=== PATIENT | female | born 1940 | race Caucasian/White ===

== ENCOUNTER 2018-03-04 00:59 | Emergency (ER) | payer OTHER ==
[~2018-03-04] VITALS: Ht 165.1 cm; Wt 79.6 kg
[~2018-03-04 00:59] MED LIST: GLIM1TAB PO; LISI-519 PO; LORA-361 PO; METF500T PO; ROSU40 PO
[2018-03-04 01:05] VITALS: BP 154/80; PULSE 61; RESP 20; TEMP 98.1; O2SAT 97
[2018-03-04] MEDS ORDERED: SODIUM CHLOR 0.9% 1000 ML INJ 1,000 ML IV SCH (01:22)
[2018-03-04 01:24] VITALS: BP 144/68; PULSE 62; RESP 20; O2SAT 98
[2018-03-04] MEDS ORDERED: ONDANSETRON HCL 4 MG/2 ML VIAL IVP ONE (01:30)
[2018-03-04] MEDS ORDERED: SODIUM CHLORIDE 0.9% FLUSH 10 ML FLUSH IV FLUSH PRN (01:30)
[2018-03-04 01:35] LABS: AUTOMATED NEUTROPHIL # 8.4 TH/MM3 (1.8-7.7); BASOPHIL # 0.2 TH/MM3 (0-0.2); BASOPHIL % 1.7 % (0.0-2.0); EOSINOPHIL # 0.2 TH/MM3 (0-0.4); EOSINOPHIL % 1.7 % (0.0-4.0); HEMATOCRIT 36.3 % (35.0-46.0); LYMPH % 17.6 % (9.0-44.0); MEAN CELL VOLUME 85.1 FL (80.0-100.0); MEAN CORPUSCULAR HEMOGLOBIN 28.2 PG (27.0-34.0); MEAN CORPUSCULAR HGB CONC 33.2 % (32.0-36.0); MEAN PLATELET VOLUME 8.2 FL (7.0-11.0); MONO % 6.3 % (0.0-8.0); MONOCYTE # 0.7 TH/MM3 (0-0.9); NEUT % 72.7 % (16.0-70.0); PLATELET COUNT 200 TH/MM3 (150-450); RED BLOOD COUNT 4.26 MIL/MM3 (4.00-5.30); RED CELL DISTRIBUTION WIDTH 13.2 % (11.6-17.2); WHITE BLOOD COUNT 11.5 TH/MM3 (4.0-11.0)
[2018-03-04 01:42] LABS: CHLORIDE 103 MEQ/L (98-107); SODIUM (NA) 137 MEQ/L (136-145)
[2018-03-04 01:46] LABS: ALBUMIN 3.5 GM/DL (3.4-5.0); BICARBONATE 26.8 MEQ/L (21.0-32.0); BLOOD UREA NITROGEN 15 MG/DL (7-18); CALCIUM 9.2 MG/DL (8.5-10.1); GLUCOSE,RANDOM 261 MG/DL (74-106)
[2018-03-04 01:49] LABS: ALT (GPT) 23 U/L (10-53); AST (GOT) 17 U/L (15-37); CREATININE 0.96 MG/DL (0.50-1.00); GLOMERULAR FILTRATION RATE 57 ML/MIN (>89)
[2018-03-04 01:51] LABS: TOTAL BILIRUBIN ADULT 0.4 MG/DL (0.2-1.0); TOTAL PROTEIN 7.7 GM/DL (6.4-8.2)
[2018-03-04 01:52] LABS: ALKALINE PHOSPHATASE 72 U/L (45-117)
[2018-03-04] MEDS ORDERED: SODIUM CHLOR 0.9% 1000 ML INJ 1,000 ML IV ONE (01:55)
[2018-03-04] MEDS ORDERED: MORPHINE SULFATE 4 MG/ML INJ IV PUSH ONE (02:00)
[2018-03-04] MEDS ORDERED: SODIUM CHLORIDE 0.9% FLUSH 10 ML FLUSH IVF PRN (02:00)
[2018-03-04] MEDS ORDERED: ONDANSETRON HCL 4 MG/2 ML VIAL IV PUSH ONE (02:00)
[2018-03-04] MEDS ORDERED: KETOROLAC TROMETHAMINE 30 MG/ML (IVP) VIAL IV PUSH ONE (02:00)
--- NOTE | 2018-03-04 02:02 | PD ---
HPI Chief Complaint: GI Complaint Time Seen by Provider: 01:22 Travel History International Travel<30 days: No Contact w/Intl Traveler<30days: No Traveled to known affect area: No History of Present Illness HPI The patient is a 77-year-old female that complains of severe, pressure discomfort on the left flank radiating down to the left lower quadrant since approximately 11 PM yesterday. The patient has a history of diabetes as well as previous kidney stones. She also has a history of cholelithiasis. The pain is a 10/10. She has been vomiting constantly. She denies any fever, dysuria, frequency or urgency. PFSH Past Medical History High Cholesterol: Yes Diabetes: Yes Patient Takes Glucophage: Yes (03/03/18-1800) Hypertension: Yes Influenza Vaccination: No Past Surgical History Surgical History: No Previous Surgery Social History Alcohol Use: No Tobacco Use: No Substance Use: No Allergies-Medications (Allergen,Severity, Reaction): Coded Allergies: cortisone (Unverified Allergy, Mild, 03/04/18) Reported Meds & Prescriptions Reported Meds & Active Scripts Active Flomax (Tamsulosin HCl) 0.4 Mg Cap 0.4 Mg PO HS Zofran (Ondansetron HCl) 4 Mg Tab 4 Mg PO Q6HR PRN Ibuprofen 600 Mg Tab 600 Mg PO TID Reported Glimepiride 1 Mg Tab 1 Mg PO DAILY Take with breakfast or first main meal Crestor (Rosuvastatin Calcium) 40 Mg Tab 20 Mg PO DAILY Metformin (Metformin HCl) 500 Mg Tab 500 Mg PO BIDPC With meals Lisinopril 5 Mg Tab 20 Mg PO DAILY Review of Systems Except as stated in HPI: all other systems reviewed are Neg Physical Exam Narrative GENERAL: The patient is alert, oriented 3 in moderate to severe distress with her left flank/left UVJ discomfort. Her vital signs show blood pressure 134/80 but are otherwise normal. SKIN: Focused skin assessment warm/dry. No skin rash is seen. HEAD: Atraumatic. Normocephalic. EYES: Pupils equal and round. No scleral icterus. No injection or drainage. ENT: No nasal bleeding or discharge. Mucous membranes pink and moist. NECK: Trachea midline. No JVD. CARDIOVASCULAR: Regular rate and rhythm. No murmur appreciated. RESPIRATORY: No accessory muscle use. Clear to auscultation. Breath sounds equal bilaterally. GASTROINTESTINAL: Abdomen soft, with tenderness to direct palpation in the left flank and left UVJ areas, nondistended. Hepatic and splenic margins not palpable. No guarding or rebound is present. MUSCULOSKELETAL: No obvious deformities. No clubbing. No cyanosis. No edema. NEUROLOGICAL: Awake and alert. No obvious cranial nerve deficits. Motor grossly within normal limits. Normal speech. PSYCHIATRIC: Appropriate mood and affect; insight and judgment normal. Data Data Last Documented VS Vital Signs Date Time Temp Pulse Resp B/P (MAP) Pulse Ox O2 Delivery O2 Flow Rate FiO2 03/04/18 02:22 55 20 122/75 (91) 98 03/04/18 01:05 98.1 Orders Orders Complete Blood Count With Diff (03/04/18:22) Comprehensive Metabolic Panel (03/04/18:22) Lipase (03/04/18 01:22) Urinalysis - C+S If Indicated (03/04/18 01:22) Iv Access Insert/Monitor (03/04/18:22) Ecg Monitoring (03/04/18:22) Oximetry (03/04/18 01:22) Ondansetron Inj (Zofran Inj) (03/04/18 01:30) Sodium Chlor 0.9% 1000 Ml Inj (Ns 1000 M (03/04/18 01:22) Sodium Chloride 0.9% Flush (Ns Flush) (03/04/18 01:30) Ketorolac Inj (Toradol Inj) (03/04/18 02:00) Morphine Inj (Morphine Inj) (03/04/18 02:00) Ondansetron Inj (Zofran Inj) (03/04/18 02:00) Sodium Chloride 0.9% Flush (Ns Flush) (03/04/18 02:00) Sodium Chlor 0.9% 1000 Ml Inj (Ns 1000 M (03/04/18 01:55) Ct Abd/Pel W/O Iv Contrast (03/04/18 03:37) Ed Discharge Order (03/04/18 03:56) Urine Culture (03/04/18 03:45) Tamsulosin (Flomax) (03/04/18 04:00) Labs Laboratory Tests Test 03/04/18 01:15 03/04/18 03:45 White Blood Count 11.5 TH/MM3 Red Blood Count 4.26 MIL/MM3 Hemoglobin 12.0 GM/DL Hematocrit 36.3 % Mean Corpuscular Volume 85.1 FL Mean Corpuscular Hemoglobin 28.2 PG Mean Corpuscular Hemoglobin Concent 33.2 % Red Cell Distribution Width 13.2 % Platelet Count 200 TH/MM3 Mean Platelet Volume 8.2 FL Neutrophils (%) (Auto) 72.7 % Lymphocytes (%) (Auto) 17.6 % Monocytes (%) (Auto) 6.3 % Eosinophils (%) (Auto) 1.7 % Basophils (%) (Auto) 1.7 % Neutrophils # (Auto) 8.4 TH/MM3 Lymphocytes # (Auto) 2.0 TH/MM3 Monocytes # (Auto) 0.7 TH/MM3 Eosinophils # (Auto) 0.2 TH/MM3 Basophils # (Auto) 0.2 TH/MM3 CBC Comment DIFF FINAL Differential Comment Blood Urea Nitrogen 15 MG/DL Creatinine 0.96 MG/DL Random Glucose 261 MG/DL Total Protein 7.7 GM/DL Albumin 3.5 GM/DL Calcium Level 9.2 MG/DL Alkaline Phosphatase 72 U/L Aspartate Amino Transf (AST/SGOT) 17 U/L Alanine Aminotransferase (ALT/SGPT) 23 U/L Total Bilirubin 0.4 MG/DL Sodium Level 137 MEQ/L Potassium Level 3.9 MEQ/L Chloride Level 103 MEQ/L Carbon Dioxide Level 26.8 MEQ/L Anion Gap 7 MEQ/L Estimat Glomerular Filtration Rate 57 ML/MIN Lipase 275 U/L Urine Color YELLOW Urine Turbidity CLOUDY Urine pH 7.0 Urine Specific [place] 1.020 Urine Protein 100 mg/dL Urine Glucose (UA) 250 mg/dL Urine Ketones NEG mg/dL Urine Occult Blood LARGE Urine Nitrite NEG Urine Bilirubin NEG Urine Urobilinogen 0.2 MG/DL Urine Leukocyte Esterase SMALL Urine RBC 100-200 /hpf Urine WBC 15-19 /hpf Urine Squamous Epithelial Cells 0-5 /hpf Urine Calcium Oxalate Crystals FEW /hpf Urine Bacteria RARE /hpf Microscopic Urinalysis Comment CULTURE INDICATED MDM Medical Decision Making Medical Screen Exam Complete: Yes Emergency Medical Condition: Yes Medical Record Reviewed: Yes Differential Diagnosis Urinary stone, pancreatitis, cholecystitis, colitis, small bowel obstruction, dehydration, electrolyte disorder, urinary tract infection Narrative Course It is 0350 now and the patient for over an hour has had no pain whatsoever. She has no tenderness on abdominal exam. This was likely a urinary stone that passed. The urine shows a large amount of blood with little evidence of infection. Diagnosis Primary Impression: Ureteral calculus, left Additional Instructions: Follow-up with a urologist if you have recurrent problems. If the pain returns , please return to the emergency department. Med/Other Pt SpecificInfo: Prescription(s) given Scripts Tamsulosin (Flomax) 0.4 Mg Cap 0.4 MG PO HS for Manage Prostate Problems, #12 CAP 0 Refills Prov: Salvador Diaz MD 03/04/18 Ondansetron (Zofran) 4 Mg Tab 4 MG PO Q6HR Y for NAUSEA OR VOMITING, #15 TAB 0 Refills Prov: Salvador Diaz MD 03/04/18 Ibuprofen (Ibuprofen) 600 Mg Tab 600 MG PO TID, #33 TAB 0 Refills Prov: Salvador Diaz MD 03/04/18 Disposition: 01 DISCHARGE HOME Condition: Stable Salvador Diaz MD March 04, 2018 02:02
[2018-03-04 02:22] VITALS: BP 122/75; PULSE 55; RESP 20; O2SAT 98
[2018-03-04 03:30] VITALS: BP 134/76; PULSE 60; RESP 20; O2SAT 98
[2018-03-04 03:52] LABS: BILIRUBIN, URINE NEG (NEG); BLOOD, URINE LARGE (NEG); GLUCOSE,URINE 250 mg/dL (NEG); KETONE, URINE NEG (NEG); NITRITE,URINE NEG (NEG); URINE COLOR YELLOW (YELLW/STRAW); URINE LEUKOCYTE ESTERASE SMALL (NEG)
[2018-03-04 03:57] LABS: BACTERIA, URINE RARE /hpf; CALCIUM OXALATE CRYSTALS,URINE FEW /hpf; RBC, URINE 100-200 /hpf (0-3); SQUAMOUS EPITHELIAL CELL URINE 0-5 /hpf (0-5); WBC, URINE 15-19 /hpf (0-5)
[2018-03-04] MEDS ORDERED: IBUP-232 PO (03:59)
[2018-03-04] MEDS ORDERED: TAMS5CAP PO (03:59)
[2018-03-04] MEDS ORDERED: ZOFR4TAB PO (03:59)
[2018-03-04] MEDS ORDERED: TAMSULOSIN HCL 0.4 MG CAP PO ONE (04:00)
[2018-03-04 04:41] VITALS: BP 134/81
[2018-03-05] MEDS ORDERED: PERC5TAB12 PO (00:42)
== END 2018-03-04 04:50 | disposition home or self-care (01) ==
LOC: PHED 00:59
DX: N13.2 Hydronephrosis with renal and ureteral calculous obstruction (principal); I10 Essential (primary) hypertension; E11.9 Type 2 diabetes mellitus without complications; E78.00 Pure hypercholesterolemia, unspecified; Z87.442 Personal history of urinary calculi; Z88.8 Allergy status to other drugs, medicaments and biological substances; Z79.84 Long term (current) use of oral hypoglycemic drugs; Z79.899 Other long term (current) drug therapy; K76.0 Fatty (change of) liver, not elsewhere classified; E78.5 Hyperlipidemia, unspecified
CPT/HCPCS: 80053; 81001; 83690; 85025; 87086; 96361; 96374; 96375; 96376; 99284; J1885; J2270; J2405; J7030

== ENCOUNTER 2018-03-04 21:11 | Emergency (ER) | payer OTHER ==
[~2018-03-04] VITALS: Ht 165.1 cm; Wt 80.7 kg
[~2018-03-04 21:11] MED LIST changes: +IBUP-232 PO; +TAMS5CAP PO; +ZOFR4TAB PO
[2018-03-04 21:20] VITALS: BP 155/73; PULSE 63; RESP 18; TEMP 98; O2SAT 99
[2018-03-04] MEDS ORDERED: MORPHINE SULFATE 4 MG/ML INJ IV PUSH ONE (23:45)
[2018-03-04] MEDS ORDERED: ONDANSETRON HCL 4 MG/2 ML VIAL IV PUSH ONE (23:45)
[2018-03-04] MEDS ORDERED: SODIUM CHLORID 0.9% 500 ML INJ 500 ML IV ONE (23:45)
--- NOTE | 2018-03-04 23:45 | PD ---
HPI Chief Complaint: Flank/Kidney Pain Time Seen by Provider: 23:39 Travel History International Travel<30 days: No Contact w/Intl Traveler<30days: No Traveled to known affect area: No History of Present Illness HPI 77-year-old female presents to the emergency department by private transportation to care family for evaluation of recurrent left flank pain consistent with renal colic. Patient has prior history of kidney stone. Patient was seen yesterday for same complaint however was noted to become pain- free while visiting in the emergency department and it was determined to not do a CAT scan at that time. Patient since 3 PM is had recurrent 7/10 left flank pain. Patient returns at this time to undergo CT imaging. Patient's had nausea no vomiting today pain was 10/10 intensity yesterday with vomiting today pain is 7/10 intensity no vomiting has had nausea and did take ibuprofen prior to arrival to the emergency department. Patient denies other concerns or complaints. No chest pain no shortness of breath patient does have history of diabetes hypertension and dyslipidemia. Patient is unable to identify exacerbating or alleviating factors. PFSH Past Medical History Narrative Medical Hypertension dyslipidemia diabetes kidney stone no tobacco use nursing notes reviewed High Cholesterol: Yes Diabetes: Yes Patient Takes Glucophage: Yes (takes metformin 03/04/18/@ 0800) Hypertension: Yes ?: Not Social History Alcohol Use: No Tobacco Use: No Substance Use: No Allergies-Medications (Allergen,Severity, Reaction): Coded Allergies: cortisone (Unverified Allergy, Mild, 03/04/18) Reported Meds & Prescriptions Reported Meds & Active Scripts Active Flomax (Tamsulosin HCl) 0.4 Mg Cap 0.4 Mg PO HS Zofran (Ondansetron HCl) 4 Mg Tab 4 Mg PO Q6HR PRN Ibuprofen 600 Mg Tab 600 Mg PO TID Reported Glimepiride 1 Mg Tab 1 Mg PO DAILY Take with breakfast or first main meal Crestor (Rosuvastatin Calcium) 40 Mg Tab 20 Mg PO DAILY Metformin (Metformin HCl) 500 Mg Tab 500 Mg PO BIDPC With meals Lisinopril 5 Mg Tab 20 Mg PO DAILY Review of Systems Except as stated in HPI: all other systems reviewed are Neg General / Constitutional: No: Fever, Chills HENT: No: Congestion Cardiovascular: No: Chest Pain or Discomfort Respiratory: No: Shortness of Breath Gastrointestinal: Positive: Nausea, Vomiting, Abdominal Pain (LLQ), No: Hematemesis, Hematochezia Genitourinary: Positive: Flank Pain, No: Urgency, Frequency, Dysuria, Hematuria Musculoskeletal: No: Myalgias, Arthralgias Skin: No Rash Neurologic: No: Weakness, Dizziness Psychiatric: No: Anxiety Hematologic/Lymphatic: No: Lymph Node Enlargement Physical Exam Narrative GENERAL: Well-developed well-nourished pleasant female no acute distress or respiratory SKIN: Warm and dry. HEAD: Normocephalic. EYES: No scleral icterus. No injection or drainage. NECK: Supple, trachea midline. No JVD or lymphadenopathy. CARDIOVASCULAR: Regular rate and rhythm without murmurs, gallops, or rubs. RESPIRATORY: Breath sounds equal bilaterally. No accessory muscle use. GASTROINTESTINAL: Abdomen soft, non-tender, nondistended. MUSCULOSKELETAL: No cyanosis, or edema. BACK: Nontender without obvious deformity. Left side CVA tenderness. Data Data Last Documented VS Vital Signs Date Time Temp Pulse Resp B/P (MAP) Pulse Ox O2 Delivery O2 Flow Rate FiO2 03/05/18 00:19 18 03/05/18 00:15 56 136/58 (84) 94 Room Air 03/04/18 21:20 98.0 Orders Orders Urinalysis - C+S If Indicated (03/04/18 23:32) Ct Abd/Pel W/O Iv Contrast (03/04/18 23:39) Sodium Chlorid 0.9% 500 Ml Inj (Ns 500 M (03/04/18 23:45) Ondansetron Inj (Zofran Inj) (03/04/18 23:45) Morphine Inj (Morphine Inj) (03/04/18 23:45) Ed Discharge Order (03/05/18 00:42) Labs Laboratory Tests Test 03/04/18 23:55 Urine Color YELLOW Urine Turbidity CLEAR Urine pH 7.0 Urine Specific [place] LESS/EQUAL 1.005 Urine Protein NEG mg/dL Urine Glucose (UA) NEG mg/dL Urine Ketones NEG mg/dL Urine Occult Blood LARGE Urine Nitrite NEG Urine Bilirubin NEG Urine Urobilinogen 0.2 MG/DL Urine Leukocyte Esterase NEG Urine RBC 20-24 /hpf Urine WBC 0-2 /hpf Urine Squamous Epithelial Cells 0-5 /hpf Urine Bacteria NONE /hpf Microscopic Urinalysis Comment CULT NOT INDICATED MDM Medical Decision Making Medical Screen Exam Complete: Yes Emergency Medical Condition: Yes Medical Record Reviewed: Yes Interpretation(s) CT a/p: CONCLUSION: Diffusely fatty liver. Mild hydronephrosis of the left kidney and hydroureter all the way down to just above the left UVJ where there is a 4 x 2 mm intraureteral stone. Jamal Florez MD on March 05, 2018 at 0:32 Board Certified Radiologist. This report was verified electronically. ua: blood/rbc's Differential Diagnosis Renal colic, ureterolithiasis, UTI, diverticulitis, aaa Narrative Course IV access obtained specimens collected and sent for resulting; CT renal protocol ordered; patient administered NS bolus, MSO4 and Zofran UA: Shows blood and red blood cells culture not indicated CT abdomen and pelvis kidney stone protocol is consistent with a 4 x 2 mm distal UVJ stone 1 cm above the bladder. Mild hydronephrosis and hydroureter is noted per reading radiologist. Patient is informed of lab results and CAT scan results patient voicing no concerns or complaints at this time. In view of persistent 4 x 2 mm stone will write prescription for Percocet 5/325 to take as needed for pain greater than 5/ 10 in intensity otherwise she is to continue her current medications as provided during her visit yesterday. Diagnosis Primary Impression: Hydronephrosis with ureteral calculus Referrals: Urologist call for appointment [employer] Urologist: Dr Abdalla Patient Instructions: Narcotic given in the ED, General Instructions Additional Instructions: Increase fluid hydration Strain urine Follow-up with urologist; call for appointment Take current medications as presently prescribed; be aware new prescription for Percocet/oxycodone is narcotic and may cause drowsiness impaired judgment delay reaction time and increased risk for fall but may take this medication as prescribed as needed for pain greater than 5/10 in intensity. Return to the emergency department for concerns or change in condition Med/Other Pt SpecificInfo: Prescription(s) given Scripts Oxycodone-Acetaminophen (Percocet) 5-325 mg Tab 1 TAB PO Q6H Y for PAIN, #7 TAB 0 Refills Prov: Patsy Milligan MD 03/05/18 Disposition: 01 DISCHARGE HOME Condition: Stable Patsy Milligan MD March 04, 2018 23:45
[2018-03-05 00:09] LABS: BILIRUBIN, URINE NEG (NEG); BLOOD, URINE LARGE (NEG); GLUCOSE,URINE NEG (NEG); KETONE, URINE NEG (NEG); NITRITE,URINE NEG (NEG); URINE COLOR YELLOW (YELLW/STRAW); URINE LEUKOCYTE ESTERASE NEG (NEG)
[2018-03-05 00:15] VITALS: BP 136/58; PULSE 56; RESP 18; O2SAT 94
[2018-03-05 00:15] LABS: SQUAMOUS EPITHELIAL CELL URINE 0-5 /hpf (0-5); WBC, URINE 0-2 /hpf (0-5)
[2018-03-05 00:19] VITALS: RESP 18
--- NOTE | 2018-03-05 00:35 | RADRPT ---
EXAM DATE/TIME: 03/05/2018 00:00 [facility] COMPARISON: No previous studies available for comparison. INDICATIONS : Left flank pain for two days. ORAL CONTRAST: No oral contrast ingested. RADIATION DOSE: 14.75 CTDIvol (mGy) MEDICAL HISTORY : Hypertension. Diabetes mellitus type 2. SURGICAL HISTORY : Cholecystectomy. ENCOUNTER: Initial ACUITY: 2 days PAIN SCALE: 7/10 LOCATION: Left flank TECHNIQUE: Volumetric scanning of the abdomen and pelvis was performed. Using automated exposure control and ad justment of the mA and/or kV according to patient size, radiation dose was kept as low as reasonably achievable to obtain optimal diagnostic quality images. DICOM format image data is available electro nically for review and comparison. FINDINGS: LOWER LUNGS: The visualized lower lungs are clear. LIVER: Homogeneously lower density without lesion. There is no dilation of the biliary tree. No calcified gallstones. SPLEEN: Normal size without lesion. PANCREAS: Within normal limits. KIDNEYS: There is mild hydronephrosis of the left kidney. There is a mild hydroureter although a down to the l eft UVJ there is a 4 x 2 mm calcification 1 cm above the UVJ. There is mild hydroureter above that. L arge stone midpole right kidney without evidence of an acute obstructing stone. ADRENAL GLANDS: Within normal limits. VASCULAR: There is no aortic aneurysm. BOWEL/MESENTERY: The stomach, small bowel, and colon demonstrate no acute abnormality. There is no free intraperitone al air or fluid. ABDOMINAL WALL: Within normal limits. RETROPERITONEUM: There is no lymphadenopathy. BLADDER: No wall thickening or mass. REPRODUCTIVE: Within normal limits. INGUINAL: There is no lymphadenopathy or hernia. MUSCULOSKELETAL: Within normal limits for patient age. CONCLUSION: Diffusely fatty liver. Mild hydronephrosis of the left kidney and hydroureter all the way down to jus t above the left UVJ where there is a 4 x 2 mm intraureteral stone. Jamal Florez MD on March 05, 2018 at 0:32 Board Certified Radiologist. This report was verified electronically.
[2018-03-05] MEDS ORDERED: PERC5TAB12 PO (00:42)
[2018-03-05 01:05] VITALS: BP 134/62
== END 2018-03-05 01:23 | disposition home or self-care (01) ==
LOC: PHED 21:11
DX: N13.2 Hydronephrosis with renal and ureteral calculous obstruction (principal); K76.0 Fatty (change of) liver, not elsewhere classified; I10 Essential (primary) hypertension; E11.9 Type 2 diabetes mellitus without complications; E78.00 Pure hypercholesterolemia, unspecified; E78.5 Hyperlipidemia, unspecified; Z79.84 Long term (current) use of oral hypoglycemic drugs; Z79.899 Other long term (current) drug therapy
CPT/HCPCS: 74176; 81001; 96361; 96374; 96375; 99284; J2270; J2405; J7040